=== PATIENT | female | born 1975 | race Two or more races ===

== ENCOUNTER 2023-08-11 19:13 | Inpatient (IN) | payer OTHER ==
[~2023-08-11] VITALS: Ht 162.6 cm; Wt 87.6 kg
[2023-08-11 20:03] LABS: URINE HCG NEGATIVE (NEG)
[2023-08-11 20:04] LABS: CLARITY,URINE TURBID (Clear); COLOR,URINE RED (Yellow)
[2023-08-11 20:05] LABS: UA COLLECTION TYPE NON-SPECIFIED
--- NOTE | 2023-08-11 20:11 | NUR ---
CALL FROM LAB URINE TOO MUCH BLOOD FOR TESTING PURPOSES. NEED NEW URINE.
[2023-08-11 20:16] LABS: RBC,URINE TNTC /HPF (0-2); WBC,URINE 20-30 /HPF (0-4)
[2023-08-11 20:17] LABS: BACTERIA,URINE 2+ /HPF (Neg); SQUAMOUS EPITHELIAL CELL,UR FEW /LPF (FEW)
[2023-08-11 20:59] LABS: BASOPHILS % (AUTO) 0.1 % (0-1); EOSINOPHILS % (AUTO) 0 % (0-6); HEMATOCRIT 38.5 % (35.0-45.0); HEMOGLOBIN 12.9 g/dl (12.0-16.0); LYMPHOCYTES # (AUTO) 0.4 X10'3 (1.1-4.8); LYMPHOCYTES % (AUTO) 2.4 % (21-51); MEAN CORPUSCULAR HEMOGLOBIN 29.3 PG (27.0-31.0); MEAN CORPUSCULAR HGB CONC 33.5 g/dL (33.0-36.5); MEAN CORPUSCULAR VOLUME 87.5 FL (78-98); MEAN PLATELET VOLUME 6.9 FL (7.4-10.4); MONOCYTES # (AUTO) 0.2 X10'3 (0-0.9); MONOCYTES % (AUTO) 1.7 % (2-12); NEUTROPHILS # (AUTO) 14.2 X10'3 (1.8-7.7); NEUTROPHILS % (AUTO) 95.8 % (42-75); PLATELET COUNT 374 X10'3 (140-440); WHITE BLOOD COUNT 14.8 X10'3 (4.5-11.0)
[2023-08-11 21:17] LABS: ALANINE AMINOTRANSFERASE 48 U/L (12-78); ALBUMIN 3.5 G/DL (3.4-5.0); ALKALINE PHOSPHATASE 87 IU/L (46-116); ANION GAP 11 (8-16); ASPARTATE AMINO TRANSFERASE 17 U/L (10-37); BLOOD UREA NITROGEN 11 MG/DL (7-18); BUN/CREATININE RATIO 12.4 (10.0-20.0); CALCIUM 9.1 MG/DL (8.5-10.1); CHLORIDE 101 MMOL/L (99-107); CREATININE 0.89 MG/DL (0.40-0.90); GLUCOSE 172 MG/DL (70-104); POTASSIUM 3.7 MMOL/L (3.5-5.1); SODIUM 133 MMOL/L (135-145); TOTAL CARBON DIOXIDE 21.5 MMOL/L (24-32); TOTAL PROTEIN 6.9 G/DL (6.4-8.2); eCRCL 67 ML/MIN; eGFR 68 ML/MIN
[2023-08-11 21:20] LABS: LIPASE 17 U/L (16-77)
[2023-08-12] MEDS ORDERED: CefTRIAXone 2gm/D5W 50ml BAG 50 ML IV ONE (03:30)
[2023-08-12] MEDS ORDERED: ondansetron/PF 4mg/2ml inj IV ONE ×2 (03:30→04:50)
[2023-08-12] MEDS ORDERED: ketorolac trometh. 30mg/ml inj. IV ONE ×2 (03:30→17:10)
[2023-08-12] MEDS ORDERED: normal saline 1000ml 1,000 ML IV ONE ×3 (03:35→06:35)
[2023-08-12] MEDS ORDERED: iohexol 300mg/ml 100ml inj. ONE (04:01)
[2023-08-12] MEDS ORDERED: vancomycin/NS 1 GM ADD-VANTAGE 250 ML IV ONE (04:45)
[2023-08-12] MEDS ORDERED: morphine 4 MG/ML inj SYRINge IV ONE (04:45)
--- NOTE | 2023-08-12 04:50 | NUR ---
MD NOTIFIED OF PT N/V AND PAIN LEVEL. MORPHINE AND ZOFRAN ORDERS PER MD.
[2023-08-12] MEDS ORDERED: methylPREDNISolone sod succ 125mg/2ml vial IV ONE (05:15)
--- NOTE | 2023-08-12 05:15 | NUR ---
NOTIFIED OF PT REPIRATIONS AND HR. SOLUMEDROL PER .
[2023-08-12] MEDS ORDERED: acetaminophen 325mg tablet PO ONE ×2 (05:40→22:45)
--- NOTE | 2023-08-12 05:43 | NUR ---
MD NOTIFIED OF PT TEMPERATURE AND OXYGEN REQUIREMENT. TYLENOL ORDER PER .
--- NOTE | 2023-08-12 05:50 | NUR ---
PT DISPLAYING SIGNS OF HYPOXIA. TRYING TO GET OUT OF BED. MD AWARE. NON REBEATHER APPLIED
[2023-08-12 06:09] LABS: ABG BASE EXCESS -4.7 mmol/L (-2.0-2.0); ABG HCO3 17.9 mmol/L (22.0-26.0); ABG OXYGEN SATURATION 95.4 % (94-97); ABG PCO2 (T) 29.2 mmHg (32.0-45.0); ABG PH (T) 7.413 (7.350-7.450); ABG PO2 (T) 80.9 mmHg (75.0-100.0); ALLEN'S TEST POSITIVE; FCOHb 0.4 % (0.0-3.9); FHHb 4.6 % (0.0-5.0); FMetHb 0.3 % (0.0-1.5); FO2Hb 94.7 % (94-97); MODE MASK - NRB; PATIENT TEMPERATURE 38.9; TOTAL HEMOGLOBIN 13.1 G/dl (12.0-16.0)
[2023-08-12] MEDS ORDERED: acetaminophen 1,000mg/100ml IV 100 ML IV ONE (06:10)
[2023-08-12] MEDS ORDERED: diphenhydrAMINE 50 mg/ml inj IV ONE (06:20)
[2023-08-12 06:30] LABS: PRO BRAIN NATRIURETIC PEPTIDE 498 PG/ML (0-125)
--- NOTE | 2023-08-12 06:30 | NUR ---
PER MD OHLFS VANCOMYCIN TO BE ADMINISTERED.
[2023-08-12] MEDS ORDERED: FERR-119 PO (07:13)
[2023-08-12] MEDS ORDERED: METF-438 PO (07:15)
[2023-08-12] MEDS ORDERED: ERGO400C PO (07:15)
[2023-08-12] MEDS ORDERED: HYDROmorphone inj. 0.5 MG/0.5 ML DISP.SYRIN IV PRN (08:20)
[2023-08-12] MEDS ORDERED: magnesium 2GM in 50ml NS 50 ML IV PRN (08:20)
[2023-08-12] MEDS ORDERED: mag hydrox/Alum hydrox/simeth 30ml oral suspension PO PRN (08:20)
[2023-08-12] MEDS ORDERED: magnesium 4gm in 100ml NS 100 ML IV PRN (08:20)
[2023-08-12] MEDS ORDERED: magnesium Cl slow-release 64mg tablet PO PRN (08:20)
[2023-08-12] MEDS ORDERED: metoclopramide 5 mg/ml inj IV PRN (08:20)
[2023-08-12] MEDS ORDERED: ondansetron/PF 4mg/2ml inj IV PRN (08:20)
[2023-08-12] MEDS ORDERED: HYDROmorphone/PF 0.2 MG/ML SYRINGE IV PRN (08:20)
[2023-08-12] MEDS ORDERED: magnesium hydroxide 30ml (MOM) UD suspension PO PRN (08:20)
[2023-08-12] MEDS ORDERED: acetaminophen 325mg tablet PO PRN ×3 (08:20→22:52)
[2023-08-12] MEDS ORDERED: acetaminophen 650mg rectal suppository RC PRN (08:20)
[2023-08-12] MEDS ORDERED: HYDROcodone/acetaminophen 10/325mg tab PO PRN (08:20)
[2023-08-12] MEDS ORDERED: bisacodyl 10mg suppository rectal RC PRN (08:20)
[2023-08-12] MEDS ORDERED: potassium Cl 40MEQ/1/2NS 520ml 520 ML IV PRN (08:20)
[2023-08-12] MEDS ORDERED: potassium Cl 20 mEq SR tablet PO PRN (08:20)
[2023-08-12] MEDS ORDERED: levoFLOXACIN-Levaquin 500mg/D5 100 ML IV ONE (08:20)
[2023-08-12] MEDS: normal saline 1000ml 1,000 ML IV SCH ×2 (08:36→18:18)
[2023-08-12 08:57] LABS: MAGNESIUM 1.1 MG/DL (1.5-2.4)
--- NOTE | 2023-08-12 12:38 | NUR ---
ED 6---BLOOD CULTURES POSITIVE GRAM NEG RODS [id number] PAGE SENT TO DR WHALEY
--- NOTE | 2023-08-12 15:15 | NUR ---
MRSA SWAB COLLECTED
--- NOTE | 2023-08-12 15:40 | NUR ---
PT PLACED ON HOSPITAL BED
--- NOTE | 2023-08-12 16:34 | NUR ---
ED BED 6---GAVE PT TYLENOL ONE HOUR AGO TEMP UP TO 102.6 [id number]
--- NOTE | 2023-08-12 16:56 | NUR ---
DR WHALEY PAGED REGARDING PT'S RISING TEMPETURE.
--- NOTE | 2023-08-12 16:56 | NUR ---
NOTIFIED PSYCHOTHERAPIST COUNSELOR DEBRA THAT DR WHALEY HAS BEEN PAGED TWICE REGARDING PTS RISING TEMPERATURE, NOW 102.9. PSYCHOTHERAPIST COUNSELOR TO PAGE DR WHALEY
--- NOTE | 2023-08-12 17:12 | NUR ---
NO RESPONSE FROM DR WHALEY AFTER THREE PAGES. PTS TEMP HAS RISEN TO 103.0. RECEIVED ORDERS FROM DR SHAVER FOR 30 MG IV TORADOL FOR FEVER REDUCTION
[2023-08-12] MEDS ORDERED: DEXTROSE 15 GM of carb/4 tabs (each vial/BOTTLE has 4 tablets) PO PRN ×2 (17:15)
[2023-08-12] MEDS ORDERED: glucagon, human recombinant 1mg kit SUBCUT PRN (17:15)
[2023-08-12] MEDS ORDERED: MESSAGE TO PHARMACY PO ONE (17:15)
[2023-08-12] MEDS ORDERED: dextrose 50%-water 50ml dispensing syringe IV PRN ×2 (17:15)
[2023-08-12] MEDS ORDERED: ibuprofen tablet 400 MG TABLET PO PRN (17:40)
[2023-08-12] MEDS: insulin Lispro (HumaLOG) vial - multi-dose SQ SCH (17:55)
[2023-08-12] MEDS: docusate sod 100mg capsule PO SCH (19:45)
[2023-08-12] MEDS: K and/or MAG REPLACEMENT MC SCH (20:00)
[2023-08-12] MEDS: VANCOmycin 1250MG/NS 250ml Bag 250 ML IV SCH (20:15)
[2023-08-12] MEDS: insulin glargine (Lantus) pen - multi-dose SQ SCH (20:35)
--- NOTE | 2023-08-12 20:48 | NUR ---
Patient's BP is 96/62. Not going to administer Mag at this time for replacement protocol. Will reaccess.
[2023-08-12] MEDS ORDERED: temazepam 15mg capsule PO PRN (21:00)
[2023-08-12] MEDS: acetaminophen 325mg tablet PO PRN (22:01)
--- NOTE | 2023-08-12 22:20 | NUR ---
Called Dr. Wilburn about fever of 103.1. New orders received.
--- NOTE | 2023-08-12 23:02 | NUR ---
Inniated cooling blanket for temp of 39.6c via bladder.
--- NOTE | 2023-08-13 00:25 | NUR ---
PATIENT RESTING WELL WITH EYES CLOSED, RESPIRATIONS EVEN AND UNLABORED. COOLING BLANKET HELPING WITH PATIENT'S TEMPERATURE, PATIENT SKIN TOLERATING COOLING BLANKET WELL. FAMILY AT BEDSIDE, IV HYDRATION INFUSING. CALL LIGHT WITHIN REACH.
--- NOTE | 2023-08-13 02:20 | NUR ---
PATIENT RESTING WELL, TEMPERATURE CONTINUING TO NORMALIZE. PATIENT DENIES NEEDS AT THIS TIME, NINO PATENT. RESPIRATIONS EVEN AND UNLABORED, CALL LIGHT WITHIN REACH, FAMILY AT BEDSIDE.
--- NOTE | 2023-08-13 04:05 | NUR ---
COOLING BLANKET REMOVED. PATIENT TEMP: 37.6 VIA BLADDER
[2023-08-13] MEDS: normal saline 1000ml 1,000 ML IV SCH ×3 (04:07→16:44)
--- NOTE | 2023-08-13 06:22 | NUR ---
Cooling blanket placed back on patient. Temperature climbing. 38.3C
[2023-08-13 07:44] LABS: BASOPHILS % (AUTO) 0.3 % (0-1); EOSINOPHILS % (AUTO) 0.3 % (0-6); HEMATOCRIT 31.9 % (35.0-45.0); HEMOGLOBIN 10.6 g/dl (12.0-16.0); LYMPHOCYTES # (AUTO) 0.2 X10'3 (1.1-4.8); MEAN CORPUSCULAR HEMOGLOBIN 29.5 PG (27.0-31.0); MEAN CORPUSCULAR HGB CONC 33.4 g/dL (33.0-36.5); MEAN CORPUSCULAR VOLUME 88.4 FL (78-98); MEAN PLATELET VOLUME 7.3 FL (7.4-10.4); MONOCYTES # (AUTO) 0.2 X10'3 (0-0.9); MONOCYTES % (AUTO) 2.9 % (2-12); NEUTROPHILS # (AUTO) 6.3 X10'3 (1.8-7.7); NEUTROPHILS % (AUTO) 93.5 % (42-75); PLATELET COUNT 211 X10'3 (140-440); RED CELL DISTRIBUTION WIDTH 14.5 % (11.5-14.5); WHITE BLOOD COUNT 6.8 X10'3 (4.5-11.0)
[2023-08-13] MEDS: K and/or MAG REPLACEMENT MC SCH ×2 (07:51→20:56)
[2023-08-13 08:08] LABS: ALANINE AMINOTRANSFERASE 50 U/L (12-78); ALBUMIN 2.4 G/DL (3.4-5.0); ALBUMIN/GLOBULIN RATIO 0.7 (1.1-1.5); ALKALINE PHOSPHATASE 98 IU/L (46-116); ANION GAP 10 (8-16); ASPARTATE AMINO TRANSFERASE 39 U/L (10-37); BILIRUBIN,TOTAL 1.5 MG/DL (0.1-1.0); BLOOD UREA NITROGEN 16 MG/DL (7-18); BUN/CREATININE RATIO 18.6 (10.0-20.0); CALCIUM 8.5 MG/DL (8.5-10.1); CHLORIDE 105 MMOL/L (99-107); CREATININE 0.86 MG/DL (0.40-0.90); GLUCOSE 157 MG/DL (70-104); MAGNESIUM 1.6 MG/DL (1.5-2.4); SODIUM 137 MMOL/L (135-145); TOTAL PROTEIN 5.7 G/DL (6.4-8.2); eCRCL 69 ML/MIN; eGFR 70 ML/MIN
[2023-08-13] MEDS: ondansetron 4mg rapidly disintigrating tab PO PRN ×2 (08:21→15:50)
[2023-08-13] MEDS: enoxaparin 40mg/0.4ml syringe SUBCUT SCH (08:21)
[2023-08-13] MEDS: docusate sod 100mg capsule PO SCH (08:21)
[2023-08-13 08:22] LABS: POTASSIUM 3.6 MMOL/L (3.5-5.1)
[2023-08-13] MEDS: levoFLOXACIN-Levaquin 500mg/D5 100 ML IV SCH (08:22)
--- NOTE | 2023-08-13 09:08 | NUR ---
DM consult: Per EMR pt with T2DM for 9-10 years with Metformin on home med list. DM is well controlled with A1c 6.5%, DM education not warranted at this time. Pt currently on a CHO controlled diet though recommend liberalizing to regular diet once BG better managed as T2DM is well controlled. Will continue to follow and make recommendations as appropriate. Addendum: 08/13/23 at [address] Amended: Links added.
[2023-08-13] MEDS: VANCOmycin 1250MG/NS 250ml Bag 250 ML IV SCH (09:44)
[2023-08-13 10:00] VITALS: BP 123/68; PULSE 97; RESP 16; TEMP 98.3; O2SAT 93
[2023-08-13 10:12] VITALS: RESP 16; O2SAT 96
[2023-08-13] MEDS: insulin Lispro (HumaLOG) vial - multi-dose SQ SCH (13:21)
[2023-08-13] MEDS: HYDROcodone/acetaminophen 5mg/325mg tablet PO PRN (15:50)
--- NOTE | 2023-08-13 17:21 | NUR ---
Pts temp was 102.3 tylenol pr was administered. Will continue to monitor
[2023-08-13 18:00] VITALS: BP 111/49; PULSE 110; RESP 18; TEMP 102.3; O2SAT 95
--- NOTE | 2023-08-13 19:15 | NUR ---
Patient in room ORTH[facility] 4021. I have received report from ARTHUR CABAN and had the opportunity to ask questions and assume patient care.
[2023-08-13 20:00] VITALS: RESP 18; O2SAT 95
[2023-08-13 20:34] LABS: APTT 25 SECONDS (22-32); D-DIMER 2.83 MG/L FEU (0-0.50); FIBRINOGEN 694 MG/DL (177-424); INR 1.3 INR
[2023-08-13] MEDS: acetaminophen 325mg tablet PO PRN (20:38)
[2023-08-13] MEDS: insulin glargine (Lantus) pen - multi-dose SQ SCH (21:01)
[2023-08-13 22:00] VITALS: BP 123/74; PULSE 97; RESP 16; TEMP 98.1; O2SAT 95
[2023-08-14] MEDS: normal saline 1000ml 1,000 ML IV SCH (01:56)
[2023-08-14] MEDS: acetaminophen 325mg tablet PO PRN (04:12)
[2023-08-14 06:00] VITALS: BP 124/79; PULSE 90; RESP 16; TEMP 97.8; O2SAT 92
--- NOTE | 2023-08-14 06:13 | NUR ---
Problems reprioritized. Patient report given, questions answered & plan of care reviewed with EZRA CABAN.
[2023-08-14] MEDS ORDERED: VANCOMYCIN LEVEL IV ONE (06:30)
[2023-08-14 06:49] LABS: BASOPHILS % (AUTO) 0.3 % (0-1); EOSINOPHILS % (AUTO) 0.4 % (0-6); HEMATOCRIT 30.2 % (35.0-45.0); HEMOGLOBIN 10.2 g/dl (12.0-16.0); LYMPHOCYTES # (AUTO) 0.4 X10'3 (1.1-4.8); LYMPHOCYTES % (AUTO) 7.5 % (21-51); MEAN CORPUSCULAR HEMOGLOBIN 29.6 PG (27.0-31.0); MEAN CORPUSCULAR HGB CONC 33.7 g/dL (33.0-36.5); MEAN CORPUSCULAR VOLUME 87.6 FL (78-98); MEAN PLATELET VOLUME 7.6 FL (7.4-10.4); MONOCYTES # (AUTO) 0.2 X10'3 (0-0.9); MONOCYTES % (AUTO) 4.7 % (2-12); NEUTROPHILS # (AUTO) 4.3 X10'3 (1.8-7.7); NEUTROPHILS % (AUTO) 87.1 % (42-75); PLATELET COUNT 190 X10'3 (140-440); RED BLOOD COUNT 3.44 X10'6 (4.20-5.60); RED CELL DISTRIBUTION WIDTH 14.4 % (11.5-14.5); WHITE BLOOD COUNT 4.9 X10'3 (4.5-11.0)
[2023-08-14 06:56] LABS: ALANINE AMINOTRANSFERASE 52 U/L (12-78); ALBUMIN 2.2 G/DL (3.4-5.0); ALBUMIN/GLOBULIN RATIO 0.6 (1.1-1.5); ALKALINE PHOSPHATASE 152 IU/L (46-116); ANION GAP 11 (8-16); ASPARTATE AMINO TRANSFERASE 36 U/L (10-37); BILIRUBIN,TOTAL 1.3 MG/DL (0.1-1.0); BLOOD UREA NITROGEN 9 MG/DL (7-18); BUN/CREATININE RATIO 12.7 (10.0-20.0); CALCIUM 8.4 MG/DL (8.5-10.1); CHLORIDE 102 MMOL/L (99-107); CREATININE 0.71 MG/DL (0.40-0.90); GLUCOSE 131 MG/DL (70-104); MAGNESIUM 1.7 MG/DL (1.5-2.4); POTASSIUM 3.3 MMOL/L (3.5-5.1); SODIUM 134 MMOL/L (135-145); TOTAL CARBON DIOXIDE 20.9 MMOL/L (24-32); TOTAL PROTEIN 5.6 G/DL (6.4-8.2); VANCOMYCIN,TROUGH 3.2 ug/mL (10.0-20.0); eCRCL 84 ML/MIN; eGFR 88 ML/MIN
[2023-08-14] MEDS: levoFLOXACIN-Levaquin 500mg/D5 100 ML IV SCH (07:52)
[2023-08-14] MEDS: K and/or MAG REPLACEMENT MC SCH ×2 (07:52→20:36)
[2023-08-14] MEDS: potassium Cl 20 mEq SR tablet PO PRN ×3 (07:52→18:34)
[2023-08-14] MEDS: enoxaparin 40mg/0.4ml syringe SUBCUT SCH (07:52)
[2023-08-14] MEDS: ondansetron 4mg rapidly disintigrating tab PO PRN (08:03)
[2023-08-14] MEDS ORDERED: levoFLOXACIN-Levaquin 250mg/D5 50 ML IV ONE (08:30)
[2023-08-14] MEDS: insulin Lispro (HumaLOG) vial - multi-dose SQ SCH ×4 (09:37→21:12)
[2023-08-14] MEDS: HYDROcodone/acetaminophen 5mg/325mg tablet PO PRN (09:57)
[2023-08-14 10:00] VITALS: BP 112/79; PULSE 91; RESP 16; TEMP 100.6; O2SAT 92
[2023-08-14 11:00] VITALS: TEMP 99.6
--- NOTE | 2023-08-14 11:00 | NUR ---
this morning RN decreased pts O2 demand to 3L NC from 4L. patient O2 sats >92%. patient stated she felt like her belly was full and nauseated, BS hypoactive. Rn gave zofran and patient stated nausea went away. patient stated she had not had a good BM since thursday 08/09 patient ambulated to the restroom with assist and O2 tank, when patient got back to bed her O2 demands increased and was taking more shallow breaths. O2 sats 88% on 3L, increased to 4.5L NC with O2 sats 90-91%. RN paged MD barbour to make aware of current situation. medications given per orders, labs and tests done per orders. Addendum: 08/14/23 at 1638 by Isabell Nelson RN patient starting to feel better, supp given. patient is passing flatus and sitting on commode. Patients O2 sats increased to 94-96% on 4.5L NC. good urine output this shift Addendum: 08/14/23 at 1652 by Isabell Nelson RN patient had medium sized BM on commode, formed, soft brown in color Addendum: 08/14/23 at 1832 by Isabell Nelson RN RN decreased O2 3.5L NC with saturations 94-95%
[2023-08-14] MEDS ORDERED: methylPREDNISolone sod succ 125mg/2ml vial IV ONE (12:00)
[2023-08-14] MEDS ORDERED: enoxaparin 40mg/0.4ml syringe SUBCUT ONE (12:00)
[2023-08-14] MEDS ORDERED: bisacodyl 10mg suppository rectal RC ONE (13:00)
[2023-08-14 14:55] LABS: HBSAG SCREEN Negative (Negative); HEP B CORE AB, IGM Negative (Negative); HEP B CORE AB, TOT Negative (Negative)
[2023-08-14] MEDS ORDERED: furosemide 40mg/4ml inj IV ONE (15:30)
[2023-08-14 18:00] VITALS: BP 125/78; PULSE 89; RESP 16; TEMP 97.8; O2SAT 94
--- NOTE | 2023-08-14 18:31 | NUR ---
Problems reprioritized. Patient report given, questions answered & plan of care reviewed with prudence RN.
[2023-08-14 20:00] VITALS: RESP 16; O2SAT 94
[2023-08-14] MEDS ORDERED: enoxaparin 80mg/0.8ml syringe SUBCUT SCH (20:00)
[2023-08-14] MEDS: methylPREDNISolone sod succ 125mg/2ml vial IV SCH (20:07)
[2023-08-14] MEDS: furosemide 40mg/4ml inj IV SCH (20:07)
[2023-08-14] MEDS: docusate sod 100mg capsule PO SCH (20:09)
[2023-08-14] MEDS: insulin glargine (Lantus) pen - multi-dose SQ SCH (21:11)
[2023-08-14 22:00] VITALS: BP 116/77; PULSE 89; RESP 17; TEMP 97.4; O2SAT 97
[2023-08-15] MEDS: methylPREDNISolone sod succ 125mg/2ml vial IV SCH ×3 (04:10→15:57)
--- NOTE | 2023-08-15 06:25 | NUR ---
Patient in room ORTH[facility] 4021. I have received report from Meseret CABAN, Elbert GARCIA and had the opportunity to ask questions and assume patient care.
--- NOTE | 2023-08-15 06:34 | NUR ---
Problems reprioritized. Patient report given, questions answered & plan of care reviewed with MOO RN.
[2023-08-15 06:44] LABS: RED BLOOD COUNT 3.94 X10'6 (4.20-5.60); RED CELL DISTRIBUTION WIDTH 14.1 % (11.5-14.5)
[2023-08-15 06:47] VITALS: BP 122/71; PULSE 74; RESP 17; TEMP 98; O2SAT 96
[2023-08-15 06:48] LABS: BASOPHILS % (AUTO) 0.3 % (0-1); EOSINOPHILS % (AUTO) 0.2 % (0-6); HEMATOCRIT 34.1 % (35.0-45.0); HEMOGLOBIN 11.6 g/dl (12.0-16.0); LYMPHOCYTES # (AUTO) 0.6 X10'3 (1.1-4.8); LYMPHOCYTES % (AUTO) 10.6 % (21-51); MEAN CORPUSCULAR HEMOGLOBIN 29.4 PG (27.0-31.0); MEAN CORPUSCULAR VOLUME 86.4 FL (78-98); MEAN PLATELET VOLUME 7.8 FL (7.4-10.4); MONOCYTES # (AUTO) 0.4 X10'3 (0-0.9); MONOCYTES % (AUTO) 6.4 % (2-12); NEUTROPHILS # (AUTO) 4.5 X10'3 (1.8-7.7); NEUTROPHILS % (AUTO) 82.5 % (42-75); PLATELET COUNT 290 X10'3 (140-440); WHITE BLOOD COUNT 5.5 X10'3 (4.5-11.0)
[2023-08-15 07:12] LABS: ALANINE AMINOTRANSFERASE 84 U/L (12-78); ALBUMIN 2.5 G/DL (3.4-5.0); ALBUMIN/GLOBULIN RATIO 0.6 (1.1-1.5); ALKALINE PHOSPHATASE 217 IU/L (46-116); ANION GAP 7 (8-16); ASPARTATE AMINO TRANSFERASE 34 U/L (10-37); BILIRUBIN,TOTAL 0.7 MG/DL (0.1-1.0); BLOOD UREA NITROGEN 14 MG/DL (7-18); BUN/CREATININE RATIO 20.6 (10.0-20.0); CALCIUM 9.5 MG/DL (8.5-10.1); CHLORIDE 99 MMOL/L (99-107); CREATININE 0.68 MG/DL (0.40-0.90); GLUCOSE 232 MG/DL (70-104); MAGNESIUM 2.1 MG/DL (1.5-2.4); POTASSIUM 3.5 MMOL/L (3.5-5.1); PRO BRAIN NATRIURETIC PEPTIDE 601 PG/ML (0-125); SODIUM 135 MMOL/L (135-145); TOTAL CARBON DIOXIDE 29.3 MMOL/L (24-32); TOTAL PROTEIN 6.7 G/DL (6.4-8.2); eCRCL 87 ML/MIN; eGFR > 90 ML/MIN
[2023-08-15 08:00] VITALS: RESP 17; RESP 18; O2SAT 96
[2023-08-15] MEDS ORDERED: enoxaparin 80mg/0.8ml syringe SUBCUT SCH (08:00)
[2023-08-15] MEDS: K and/or MAG REPLACEMENT MC SCH ×2 (08:00→20:00)
[2023-08-15] MEDS: docusate sod 100mg capsule PO SCH ×2 (08:01→19:54)
[2023-08-15] MEDS: furosemide 40mg/4ml inj IV SCH ×2 (08:02→19:54)
[2023-08-15] MEDS: levoFLOXACIN-Levaquin 750MG/D5 150 ML IV SCH (08:23)
[2023-08-15] MEDS: enoxaparin 40mg/0.4ml syringe SUBCUT SCH (08:28)
[2023-08-15 08:47] LABS: D-DIMER 1.35 MG/L FEU (0-0.50); INR 1.1 INR; PROTHROMBIN TIME 11.9 SECONDS (9.0-12.0)
[2023-08-15 09:08] LABS: FIBRINOGEN 843 MG/DL (177-424)
[2023-08-15] MEDS: insulin Lispro (HumaLOG) vial - multi-dose SQ SCH ×4 (09:36→21:35)
[2023-08-15 11:47] VITALS: BP 115/68; PULSE 96; RESP 16; TEMP 97.1; O2SAT 97
--- NOTE | 2023-08-15 17:24 | NUR ---
PAGER ID: [phone] MESSAGE: Lobo Cade [phone] Shyann Christiansen Patient has gonsalves catheter but i cant find order could we take out for possible discharge home? Patient currently on room air sating 95%. Thanks
--- NOTE | 2023-08-15 17:25 | NUR ---
Student documentation: I have reviewed all interventions, assessments performed and documented by Santo GARCIA. Student Medication Administration: For this medication-pass time frame, all medication were reviewed, dispensed, administered and documented per hospital policy by Santo GARCIA.
[2023-08-15 18:00] VITALS: BP 126/87; PULSE 84; RESP 16; TEMP 97.2; O2SAT 93
--- NOTE | 2023-08-15 18:35 | NUR ---
Problems reprioritized. Patient report given, questions answered & plan of care reviewed with Keli CABAN.
--- NOTE | 2023-08-15 18:40 | NUR ---
Patient in room ORTHO 4018. I have received report from MOO CABAN and had the opportunity to ask questions and assume patient care.
[2023-08-15 20:00] VITALS: RESP 16; O2SAT 93
[2023-08-15] MEDS: insulin glargine (Lantus) pen - multi-dose SQ SCH (21:33)
[2023-08-15 22:00] VITALS: BP 115/78; PULSE 89; RESP 16; TEMP 97.9; O2SAT 95
[2023-08-16] MEDS: methylPREDNISolone sod succ 125mg/2ml vial IV SCH ×2 (00:16→09:47)
[2023-08-16] MEDS: HYDROcodone/acetaminophen 5mg/325mg tablet PO PRN (00:17)
[2023-08-16 06:25] LABS: BASOPHILS % (AUTO) 0.1 % (0-1); EOSINOPHILS % (AUTO) 0.1 % (0-6); HEMATOCRIT 38.2 % (35.0-45.0); HEMOGLOBIN 12.8 g/dl (12.0-16.0); LYMPHOCYTES % (AUTO) 14.3 % (21-51); MEAN CORPUSCULAR HEMOGLOBIN 28.9 PG (27.0-31.0); MEAN CORPUSCULAR HGB CONC 33.4 g/dL (33.0-36.5); MEAN CORPUSCULAR VOLUME 86.3 FL (78-98); MEAN PLATELET VOLUME 7.7 FL (7.4-10.4); MONOCYTES # (AUTO) 0.6 X10'3 (0-0.9); MONOCYTES % (AUTO) 8.7 % (2-12); NEUTROPHILS # (AUTO) 5.1 X10'3 (1.8-7.7); NEUTROPHILS % (AUTO) 76.8 % (42-75); PLATELET COUNT 367 X10'3 (140-440); RED BLOOD COUNT 4.42 X10'6 (4.20-5.60); RED CELL DISTRIBUTION WIDTH 14.6 % (11.5-14.5); WHITE BLOOD COUNT 6.6 X10'3 (4.5-11.0)
--- NOTE | 2023-08-16 06:27 | NUR ---
Problems reprioritized. Patient report given, questions answered & plan of care reviewed with MOO RN.
[2023-08-16 06:41] LABS: ALANINE AMINOTRANSFERASE 58 U/L (12-78); ALBUMIN 2.6 G/DL (3.4-5.0); ALBUMIN/GLOBULIN RATIO 0.6 (1.1-1.5); ALKALINE PHOSPHATASE 188 IU/L (46-116); ANION GAP 9 (8-16); ASPARTATE AMINO TRANSFERASE 20 U/L (10-37); BILIRUBIN,TOTAL 0.5 MG/DL (0.1-1.0); BLOOD UREA NITROGEN 22 MG/DL (7-18); BUN/CREATININE RATIO 30.1 (10.0-20.0); CALCIUM 9.9 MG/DL (8.5-10.1); CHLORIDE 99 MMOL/L (99-107); CREATININE 0.73 MG/DL (0.40-0.90); GLUCOSE 220 MG/DL (70-104); POTASSIUM 3.3 MMOL/L (3.5-5.1); SODIUM 136 MMOL/L (135-145); TOTAL CARBON DIOXIDE 28.4 MMOL/L (24-32); TOTAL PROTEIN 6.8 G/DL (6.4-8.2); eCRCL 81 ML/MIN; eGFR 85 ML/MIN
--- NOTE | 2023-08-16 06:59 | NUR ---
Patient in room ORTHO 4018. I have received report from Keli CABAN and had the opportunity to ask questions and assume patient care.
[2023-08-16 07:12] VITALS: BP 107/68; PULSE 71; RESP 18; TEMP 97; O2SAT 94
--- NOTE | 2023-08-16 07:17 | NUR ---
Patient in room ORTHO 4018. I have received report from Keli CABAN and had the opportunity to ask questions and assume patient care.
--- NOTE | 2023-08-16 07:22 | NUR ---
PAGER ID: [phone] MESSAGE: Lobo hennessy re:[id number] Shyann Christiansen patient K+ is 3.3 could we have a one time dose of 40mEq for replacement. Thanks
[2023-08-16] MEDS ORDERED: pantoprazole 40mg Tablet.DR PO SCH (07:30)
[2023-08-16 08:00] VITALS: RESP 18; O2SAT 95
[2023-08-16] MEDS: K and/or MAG REPLACEMENT MC SCH (08:00)
[2023-08-16] MEDS ORDERED: potassium Cl 20 mEq SR tablet PO PRN (08:20)
[2023-08-16] MEDS ORDERED: potassium Cl 40MEQ/1/2NS 520ml 520 ML IV PRN (08:20)
[2023-08-16] MEDS ORDERED: magnesium Cl slow-release 64mg tablet PO PRN (08:20)
[2023-08-16] MEDS ORDERED: magnesium 4gm in 100ml NS 100 ML IV PRN (08:20)
[2023-08-16] MEDS ORDERED: magnesium 2GM in 50ml NS 50 ML IV PRN (08:20)
[2023-08-16] MEDS: insulin Lispro (HumaLOG) vial - multi-dose SQ SCH (09:37)
[2023-08-16] MEDS: docusate sod 100mg capsule PO SCH (09:43)
[2023-08-16] MEDS: potassium Cl 20 mEq SR tablet PO PRN ×2 (09:44→14:22)
[2023-08-16] MEDS: enoxaparin 40mg/0.4ml syringe SUBCUT SCH (09:45)
[2023-08-16] MEDS ORDERED: LEVO-65 PO (09:53)
[2023-08-16] MEDS ORDERED: FURO40TA4 PO (09:53)
[2023-08-16] MEDS: furosemide 40mg/4ml inj IV SCH (09:54)
[2023-08-16] MEDS: levoFLOXACIN-Levaquin 750MG/D5 150 ML IV SCH (09:58)
[2023-08-16 10:00] VITALS: BP 110/70; PULSE 76; RESP 18; TEMP 97.8; O2SAT 95
--- NOTE | 2023-08-16 15:00 | NUR ---
Patient discharge education gone over. Patient IV removed. Canula intact. Patient wheeled out by staff.
[2023-08-16] MEDS ORDERED: K and/or MAG REPLACEMENT MC SCH (20:00)
== END 2023-08-16 15:33 | disposition home or self-care (01) | DRG 871 ==
LOC: ER 19:14 → ED HOLD 08-12 08:22 → EDBEDREQ 08-13 03:37 → ORTHO 4S 08-13 07:50
PROVIDERS: ADMIT Family Medicine; ATTEND Family Medicine
PROC: BW211ZZ Computerized Tomography (CT Scan) of Abdomen and Pelvis using Low Osmolar Contrast (ICD-10-PCS; principal; 2023-08-12)
PROC: CB121ZZ Planar Nuclear Medicine Imaging of Lungs and Bronchi using Technetium 99m (Tc-99m) (ICD-10-PCS; 2023-08-14)
DX: A41.50 Gram-negative sepsis, unspecified (principal); D65 Disseminated intravascular coagulation [defibrination syndrome]; J96.01 Acute respiratory failure with hypoxia; E87.1 Hypo-osmolality and hyponatremia; E87.20 Acidosis, unspecified; N13.6 Pyonephrosis; T88.6XXA Anaphylactic reaction due to adverse effect of correct drug or medicament properly administered, initial encounter; G47.33 Obstructive sleep apnea (adult) (pediatric); I27.81 Cor pulmonale (chronic); Z20.822 Contact with and (suspected) exposure to COVID-19; B96.20 Unspecified Escherichia coli [E. coli] as the cause of diseases classified elsewhere; E66.9 Obesity, unspecified; K59.00 Constipation, unspecified; I50.9 Heart failure, unspecified; E11.9 Type 2 diabetes mellitus without complications; T36.1X5A Adverse effect of cephalosporins and other beta-lactam antibiotics, initial encounter; Y92.238 Other place in hospital as the place of occurrence of the external cause; Z88.1 Allergy status to other antibiotic agents; Z91.013 Allergy to seafood; Z91.041 Radiographic dye allergy status; Z98.891 History of uterine scar from previous surgery; Z68.33 Body mass index [BMI] 33.0-33.9, adult
CPT/HCPCS: 36415; 36600; 71045; 74178; 78582; 80053; 80202; 81001; 81025; 82803; 82948; 83036; 83605; 83690; 83735; 83880; 84132; 84145; 84484; 85018; 85025; 85379; 85384; 85610; 85730; 86140; 86704; 86705; 86885; 86900; 86901; 87040; 87077; 87081; 87088; 87186; 87340; 87811; 93306; 93970; 99285; A4615; A4620; A5200; A9539; A9540; C1758; G0378; J0131; J0696; J1200; J1650; J1815; J1885; J1940; J1956; J2270; J2405; J2930; J3370; J3490; J7030; Q9967